=== PATIENT | female | born 1945 | race Caucasian/White ===

== ENCOUNTER → 2018-02-25 | Outpatient (CLI) | payer MEDICARE | END | disposition home or self-care (01) | LOC: US 09:53 | DX: I65.22 Occlusion and stenosis of left carotid artery (principal) | CPT/HCPCS: 93880 ==

== ENCOUNTER → 2020-06-28 | Outpatient (CLI) | payer MEDICARE ==
[2019-10-02 11:55] VITALS: BP 134/62
[~2020-06-28] MED LIST: ASPI325T70 PO; CLONAZEPAM1 MG PO; FAMO20TA5 PO; ISOS30TA4 PO; LISI1TAB23 PO; NITR0.4T24 SL; SIMV10TA15 PO
--- NOTE | 2020-06-28 16:12 | RAD ---
EXAM: CT Chest without IV contrast INDICATION: Reason: PULMONARY NODULE / Spl. Instructions: / History: TECHNIQUE: Multi-detector row CT images were acquired from the thoracic inlet through the upper abdomen without the use of IV contrast. Sagittal and coronal images were acquired from the transaxial data. All CT scans performed at this facility utilize dose optimization techniques as appropriate to the exam, including the following: Automated exposure control and adjustment of the mA and/or KV according to patient size (this includes techniques or standardized protocols for targeted exams where dose is indication/reason for exam). COMPARISON: Chest CT without IV contrast of September 30, 2019 FINDINGS: The absence of IV contrast limits evaluation of soft tissue pathology. CARDIOVASCULAR: Extensive arterial calcifications without aneurysmal dilation. There are calcifications at the origin of the great vessels, including the left subclavian artery and left common carotid artery. Evaluation for flow-limiting stenosis is limited in the absence of administered IV contrast. The heart is normal in size. No pericardial effusion. Multivessel coronary calcifications are present. MEDIASTINUM & FRANSISCO: No adenopathy or masses. LUNGS: Centrilobular emphysema. Posterior peripheral right upper lobe groundglass pulmonary nodule measuring approximately 9 mm shows interval increase in density centrally with solid-appearing central component measuring 5 mm (image 27 of axial series 2). The nodule appears to have irregular margins, possible early spiculation. 7 mm groundglass opacity in the peripheral left upper lobe (image 14 of axial series 2) is present unchanged. PLEURAL SPACE: No pleural effusions or pneumothorax. OSSEOUS & SOFT TISSUE: Unremarkable ABDOMEN: The visualized portions of the upper abdomen are unremarkable. IMPRESSION: 1. Emphysema with slightly increasing groundglass opacity in the peripheral right upper lobe, with a 5 mm central soft tissue component, and a stable 7 mm groundglass opacity in the left upper lobe. Recommend CT in 12 months.. Electronically signed by: Leidy Godoy MD (06/28/2020 4:09 PM) [id number]
== END | disposition home or self-care (01) ==
LOC: CT 10:25
PROVIDERS: ATTEND Internal Medicine
DX: J43.9 Emphysema, unspecified (principal); R91.1 Solitary pulmonary nodule; I25.10 Atherosclerotic heart disease of native coronary artery without angina pectoris
CPT/HCPCS: 71250

== ENCOUNTER 2020-09-10 15:25 | Emergency (ER) | payer MEDICARE ==
[~2020-09-10] VITALS: Ht 170.2 cm; Wt 71.8 kg
[2020-09-10 15:50] VITALS: BP 126/61
[2020-09-10 16:15] LABS: BASO % 0 % (0-3); EOS % 0 % (0-3); HEMATOCRIT 37.4 % (36.0-47.0); HEMOGLOBIN 12.8 g/dL (12.0-15.5); LYMPH % 27 % (24-48); MEAN CORPUSCULAR HEMOGLOBIN 30 pg (25-35); MEAN CORPUSCULAR HGB CONC 34 g/dL (31-37); MEAN CORPUSCULAR VOLUME 89 fL (79-100); MONO # 0.4 x10^3/uL (0.0-1.1); MONO % 10 % (0-9); NEUT # 2.3 x10^3/uL (1.8-7.7); NEUT % 63 % (31-73); PLATELET COUNT 144 x10^3/uL (140-400); RED BLOOD COUNT 4.21 x10^6/uL (3.50-5.40); RED CELL DISTRIBUTION WIDTH 13.8 % (11.5-14.5); WHITE BLOOD COUNT 3.7 x10^3/uL (4.0-11.0)
[2020-09-10] MEDS ORDERED: IV NORMAL SALINE 1000ML BAG 1,000 ML IV ONE (16:15)
[2020-09-10 16:29] LABS: CREATININE 1.5 mg/dL (0.6-1.0); GFR 33.8; POTASSIUM 3.3 mmol/L (3.5-5.1)
[2020-09-10 16:35] LABS: ALBUMIN 3.7 g/dL (3.4-5.0); ALBUMIN/GLOBULIN RATIO 0.9 (1.0-1.7); MAGNESIUM 1.9 mg/dL (1.8-2.4); TOTAL BILIRUBIN 0.7 mg/dL (0.2-1.0); TOTAL PROTEIN 7.8 g/dL (6.4-8.2)
--- NOTE | 2020-09-10 16:37 | PHYS DOC ---
Past Medical History Past Medical History: Anxiety, CVA, GERD, Hypertension, Stroke (XIN MORENO APRN) Past Surgical History: Tonsillectomy, Tubal ligation (XIN MORENO APRN) Smoking Status: Never Smoker Alcohol Use: None Drug Use: None (XIN MORENO APRN) General Adult EDM: Chief Complaint: WEAKNESS/GENERALIZED HPI: HPI: Patient is a 75 year old female with history of CVA, anxiety, hypertension, who presents to the ED today complaining of generalized weakness, symptoms began 4 days ago. Also complaining of nausea, vomiting and diarrhea for 4 days. She states she was seen at urgent care yesterday and was given Zofran. She states she was tested for COVID-19 and does not have results yet. Denies any chest pain or shortness of breath. Denies any fever, coughing or congestion. (XIN MORENO APRN) Review of Systems: Review of Systems: Constitutional: Denies fever or chills. [] Eyes: Denies change in visual acuity. [] HENT: Denies nasal congestion or sore throat. [] Respiratory: Denies cough or shortness of breath. [] Cardiovascular: Denies chest pain or edema. [] GI: Reports nausea, vomiting, diarrhea denies abdominal pain, bloody stools : Denies dysuria. [] Musculoskeletal: Denies back pain or joint pain. [] Integument: Denies rash. [] Neurologic: Reports generalized weakness. Denies headache, focal weakness or sensory changes. [] Psychiatric: Denies depression or anxiety. [] (XIN MORENO APRN) Heart Score: Risk Factors: Risk Factors: DM, Current or recent (<one month) smoker, HTN, HLP, family history of CAD, obesity. Risk Scores: Score 0 - 3: 2.5% MACE over next 6 weeks - Discharge Home Score 4 - 6: 20.3% MACE over next 6 weeks - Admit for Clinical Observation Score 7 - 10: 72.7% MACE over next 6 weeks - Early Invasive Strategies (XIN MORENO APRN) Current Medications: Current Medications Medications (Trade) Dose Ordered Sig/Yuni Start Time Stop Time Status Last Admin Dose Admin Sodium Chloride 1,000 ml @ 1,000 mls/hr 1X ONCE 09/10/20 16:15 09/10/20 17:14 09/10/20 16:14 1,000 MLS/HR (XIN MORENO [employer] MANAGER) Allergies: Allergies: Allergies Coded Allergies Type Severity Reaction Last Updated Verified No Known Drug Allergies 06/28/15 No (XIN MORENO SID) Physical Exam: PE: Constitutional: Well developed, well nourished, no acute distress, non-toxic appearance. [] HENT: Normocephalic, atraumatic, bilateral external ears normal, oropharynx moist, no oral exudates, nose normal. [] Eyes: PERRLA, EOMI, conjunctiva normal, no discharge. [] Neck: Normal range of motion, no tenderness, supple, no stridor. [] Cardiovascular:Heart rate regular rhythm, no murmur [] Lungs & Thorax: Bilateral breath sounds clear to auscultation [] Abdomen: Bowel sounds normal, soft, no tenderness, no masses, no pulsatile masses. [] Skin: Warm, dry, no erythema, no rash. [] Back: No tenderness, no CVA tenderness. [] Extremities: No tenderness, no cyanosis, no clubbing, ROM intact, no edema. [] Neurologic: Alert and oriented X 3, normal motor function, normal sensory function, no focal deficits noted. Cranial nerves II through XII intact Psychologic: Affect normal, judgement normal, mood normal. [] (XIN MORENO [employer] MANAGER) Current Patient Data: Labs: Laboratory Tests Test 09/10/20 15:55 White Blood Count 3.7 x10^3/uL (4.0-11.0) L Red Blood Count 4.21 x10^6/uL (3.50-5.40) Hemoglobin 12.8 g/dL (12.0-15.5) Hematocrit 37.4 % (36.0-47.0) Mean Corpuscular Volume 89 fL (79-100) Mean Corpuscular Hemoglobin 30 pg (25-35) Mean Corpuscular Hemoglobin Concent 34 g/dL (31-37) Red Cell Distribution Width 13.8 % (11.5-14.5) Platelet Count 144 x10^3/uL (140-400) Neutrophils (%) (Auto) 63 % (31-73) Lymphocytes (%) (Auto) 27 % (24-48) Monocytes (%) (Auto) 10 % (0-9) H Eosinophils (%) (Auto) 0 % (0-3) Basophils (%) (Auto) 0 % (0-3) Neutrophils # (Auto) 2.3 x10^3/uL (1.8-7.7) Lymphocytes # (Auto) 1.0 x10^3/uL (1.0-4.8) Monocytes # (Auto) 0.4 x10^3/uL (0.0-1.1) Eosinophils # (Auto) 0.0 x10^3/uL (0.0-0.7) Basophils # (Auto) 0.0 x10^3/uL (0.0-0.2) Sodium Level 130 mmol/L (136-145) L Potassium Level 3.3 mmol/L (3.5-5.1) L Chloride Level 95 mmol/L (98-107) L Carbon Dioxide Level 23 mmol/L (21-32) Anion Gap 12 (6-14) Blood Urea Nitrogen 40 mg/dL (7-20) H Creatinine 1.5 mg/dL (0.6-1.0) H Estimated GFR (Cockcroft-Gault) 33.8 BUN/Creatinine Ratio 27 (6-20) H Glucose Level 86 mg/dL (70-99) Calcium Level 9.0 mg/dL (8.5-10.1) Magnesium Level Pending Total Bilirubin Pending Aspartate Amino Transferase (AST) Pending Alanine Aminotransferase (ALT) Pending Alkaline Phosphatase Pending Total Protein Pending Albumin Pending Albumin/Globulin Ratio Pending Laboratory Tests 09/10/20 15:55 Laboratory Tests 09/10/20 15:55 Vital Signs: Vital Signs Date Time Temp Pulse Resp B/P (MAP) Pulse Ox O2 Delivery O2 Flow Rate FiO2 09/10/20 15:50 98.9 64 18 126/61 (82) 93 Room Air 98.9 (XIN MORENO APRN) EKG: EKG: [][id number] Puente sinus rhythm with T wave inversions on V4, V2, V5, V6 Ekg compared with 09/30/19 EKg and noted to have some similarities with slightly more T wave inversions on todays EKG. (XIN MORENO APRN) Radiology/Procedures: Radiology/Procedures: []PROCEDURE: CT HEAD WO CONTRAST Exam: CT head INDICATION: Weakness TECHNIQUE: Sequential axial images through the head were obtained without the administration of IV contrast. Comparisons: 09/30/2019 FINDINGS: No focal parenchymal lesion or hemorrhage is identified. There is no midline shift or sulcal effacement. Mild patchy hypodensity in the periventricular white matter particularly in the left frontal lobe, similar prior study. No acute vascular territory infarction is identified. Leal-white distinction is preserved. The ventricular system is within normal limits without compression hydrocephalus. The basal cisterns are well maintained. The visualized portions of the paranasal sinuses and mastoid air cells are well- pneumatized. No acute fractures. IMPRESSION: No acute intracranial abnormality. Exposure: One or more of the following in the visualized dose reduction techniques were utilized for this examination: 1. Automated exposure control 2. Adjustment of the MA and/or KV according to patient size Use of iterative of reconstructive technique Electronically signed by: Faye Cintron MD (09/10/2020 4:45 PM) [facility] DICTATED and SIGNED BY: FAYE CINTRON MD DATE: 09/10/20 [id number] PROCEDURE: PORTABLE CHEST 1V Exam: Chest one view INDICATION: Weakness TECHNIQUE: Frontal view of the chest Comparisons: None FINDINGS: The cardiomediastinal silhouette and pulmonary vessels are within normal limits. Strandy opacities at the left lung base. No pleural effusion. IMPRESSION: Left basilar atelectasis. Electronically signed by: Faye Cintron MD (09/10/2020 4:38 PM) [facility] DICTATED and SIGNED BY: FAYE CINTRON MD DATE: 09/10/20 [id number] (XIN MORENO APRN) Course & Med Decision Making: Course & Med Decision Making Pertinent Labs and Imaging studies reviewed. (See chart for details) This is a 75-year-old female patient presenting to the ED today complaining of generalized weakness, nausea, vomiting, diarrhea, symptoms of 4 days. Was seen at urgent care yesterday and started on Zofran. She states it did not relieve her symptoms. She was also tested for COVID-[address] of the head is negative, chest x-ray is negative for any acute findings, noted for atelectasis. CBC with WBC of 3.7, this is lower than patient's baseline. CMP with potassium of 3.3, patient was given oral potassium replacement, creatinine 1.5, BUN 40, this is around patient's baseline, lactic 2 .0, pro calcitonin 0.12. Urine analysis was positive for UTI. Patient was given IV fluids and Rocephin in the ED. Discharged on cephalexin. Instructed to push fluids and follow-up with the primary care doctor in the course of next week. She is currently waiting for COVID-19 results from urgent care. Encouraged to quarantine herself and maintain good hygiene. (XIN MORENO APRN) Dragon Disclaimer: Dragon Disclaimer: This electronic medical record was generated, in whole or in part, using a voice recognition dictation system. (XIN MORENO APRN) NIHSS Stroke Scale NIH Stroke Scale: NIH Stroke Scale Response (Comments) Value Level of Consciousness: 0 Alert/Responsive 0 LOC Questions: 0 Answers both correctly 0 LOC Commands: 0 Performs both tasks 0 Best Gaze: 0 Normal 0 Visual: 0 No visual loss 0 Facial Palsy: 0 Normal, symmetrical 0 Motor - Left Arm 0 No drift 0 Motor - Right Arm 0 No drift 0 Motor - Left Leg 0 No drift 0 Motor: Right Leg 0 No drift 0 Limb Ataxia: 0 Absent 0 Sensory: 0 No loss 0 Best Language: 0 Normal 0 Dysathria: 0 Normal 0 Extinction and Inattention: 0 Normal 0 Total 0 Departure Departure Impression: Primary Impression: Urinary tract infection Qualified Codes: N39.0 - Urinary tract infection, site not specified Additional Impressions: Weakness Person under investigation for COVID-19 Renal insufficiency Disposition: 01 DC HOME SELF CARE/HOMELESS Condition: STABLE Referrals: DESIREE GARCIA MD (PCP) follow up next week Patient Instructions: Urinary Tract Infection, Weakness Additional Instructions: You were evaluated in the emergency room. Your CAT scan of the head is negative for any acute findings, your chest x-ray is negative for any acute findings. Your urine was positive for urinary tract infection. We started you on antibiotics, take them as prescribed until completed. You were tested for COVID-19 at urgent care. Quarantine yourself until you get results. Maintain good antigen, push fluids. Scripts Metoclopramide Hcl (REGLAN) 10 Mg Tablet 1 TAB PO TID, #12 TAB 0 Refills before food and bedtime Prov: XIN MORENO APRN 09/10/20 Cephalexin (CEPHALEXIN) 500 Mg Tablet 1 TAB PO BID, #14 TAB Prov: XIN MORENO APRN 09/10/20 Attending Signature Attending Signature I have reviewed the PA/MACHINE III COREMAKER's note and plan of care. I was available for consultation as needed during the patient's visit in the emergency department. I agree with the clinical impression, plan, and disposition. (TEE PUENTE DO) XIN MORENO APRN Sep 10, 2020 16:37 TEE PUENTE DO Sep 11, 2020 10:34
--- NOTE | 2020-09-10 16:40 | RAD ---
Exam: Chest one view INDICATION: Weakness TECHNIQUE: Frontal view of the chest Comparisons: None FINDINGS: The cardiomediastinal silhouette and pulmonary vessels are within normal limits. Strandy opacities at the left lung base. No pleural effusion. IMPRESSION: Left basilar atelectasis. Electronically signed by: Faye Meneses MD (09/10/2020 4:38 PM) TYSHAWN
[2020-09-10 16:43] LABS: CREATINE KINASE 66 U/L (26-192)
--- NOTE | 2020-09-10 16:48 | RAD ---
Exam: CT head INDICATION: Weakness TECHNIQUE: Sequential axial images through the head were obtained without the administration of IV co ntrast. Comparisons: 09/30/2019 FINDINGS: No focal parenchymal lesion or hemorrhage is identified. There is no midline shift or sulcal effaceme nt. Mild patchy hypodensity in the periventricular white matter particularly in the left frontal lobe, si milar prior study. No acute vascular territory infarction is identified. Leal-white distinction is pr eserved. The ventricular system is within normal limits without compression hydrocephalus. The basal cisterns are well maintained. The visualized portions of the paranasal sinuses and mastoid air cells are well-pneumatized. No acute fractures. IMPRESSION: No acute intracranial abnormality. Exposure: One or more of the following in the visualized dose reduction techniques were utilized for this examination: 1. Automated exposure control 2. Adjustment of the MA and/or KV according to patient size Use of iterative of reconstructive technique Electronically signed by: Faye Meneses MD (09/10/2020 4:45 PM) [facility]US[facility]OL[facility]
[2020-09-10 17:02] LABS: BILIRUBIN,URINE NEGATIVE (NEG); CLARITY,URINE CLEAR; COLOR,URINE YELLOW; NITRITE,URINE POSITIVE (NEG); PH,URINE 5.5 (<5.0-8.0); PROTEIN,URINE NEGATIVE (NEG-TRACE)
--- NOTE | 2020-09-10 17:09 | EKG ---
[facility] [address] [place] [address] Test Date: 2020-09-10 Test Time: 15:57:39 Pat Name: SHINE SCANLON Department: Room: Gender: F [employer] Portal Developer: : 1945 Requested By: XIN MORENO Order Number: [id number] Reading MD: Measurements Intervals Marydel Rate: 66 P: [place]: QRS: 131 QRSD: 90 T: 0 QT: 456 QTc: 480 Interpretive Statements SINUS RHYTHM ABNORMAL RIGHT AXIS DEVIATION CONSIDER RIGHT VENTRICULAR HYPERTROPHY QRS(T) CONTOUR ABNORMALITY CONSISTENT WITH HIGH LATERAL INFARCT AGE UNDETERMINED ST & T ABNORMALITY, CONSIDER ANTERIOR ISCHEMIA OR LEFT VENTRICULAR STRAIN ABNORMAL ECG RI6.02 No previous ECG available for comparison
[2020-09-10 17:10] LABS: BARBITURATES NEG (NEG); BENZODIAZEPINES NEG (NEG); CANNABINOIDS NEG (NEG); COCAINE NEG (NEG); METHADONE NEG (NEG); OPIATES NEG (NEG); PHENCYCLIDINE NEG (NEG)
[2020-09-10 17:11] LABS: BACTERIA,URINE MANY /HPF (0-FEW); RBC,URINE 0 /HPF (0-2); WBC,URINE >40 /HPF (0-4)
[2020-09-10 17:12] LABS: AMPHETAMINE/METHAMPHETAMINE NEG (NEG)
[2020-09-10] MEDS ORDERED: cefTRIAXone IV Push 1 GM VIAL. IVP ONE (17:30)
[2020-09-10] MEDS ORDERED: POTASSIUM CHLORIDE 20 MEQ TABLET.ER. PO ONE (17:30)
[2020-09-10] MEDS ORDERED: CEPH500T PO (18:40)
[2020-09-10] MEDS ORDERED: METO10TA81 PO (18:40)
[2020-09-15] MEDS ORDERED: ATOR20TA PO (09:58)
[2020-09-15] MEDS ORDERED: ONDA4TAB7 PO (09:58)
[2020-09-15] MEDS ORDERED: CHOL2400 IM (09:58)
[2020-09-15] MEDS ORDERED: CLOP75TA PO (09:58)
[2020-09-15] MEDS ORDERED: FAMO20TA5 PO (09:58)
[2020-09-15] MEDS ORDERED: LISI1TAB23 PO (09:58)
[2020-09-18] MEDS ORDERED: DOXY-96 PO (11:43)
== END 2020-09-10 19:05 | disposition home or self-care (01) ==
LOC: ER 15:25
DX: N39.0 Urinary tract infection, site not specified (principal); R53.1 Weakness; R11.2 Nausea with vomiting, unspecified; R19.7 Diarrhea, unspecified; N28.9 Disorder of kidney and ureter, unspecified; F41.9 Anxiety disorder, unspecified; K21.9 Gastro-esophageal reflux disease without esophagitis; I10 Essential (primary) hypertension; I25.2 Old myocardial infarction; Z90.89 Acquired absence of other organs; Z98.51 Tubal ligation status; Z86.73 Personal history of transient ischemic attack (TIA), and cerebral infarction without residual deficits; Z79.899 Other long term (current) drug therapy
CPT/HCPCS: 36415; 70450; 71045; 80053; 80307; 81001; 82553; 83605; 83735; 83880; 84145; 84443; 84484; 85025; 87040; 87086; 93005; 96361; 96374; 99285; J0696; J7030

== ENCOUNTER → 2020-10-17 | Outpatient (CLI) | payer MEDICARE ==
[2020-09-18 11:00] VITALS: BP 87/44
[~2020-10-17] MED LIST changes: +ATOR20TA PO; +CEPH500T PO; +CHOL2400 IM; +CLOP75TA PO; +CONTRAST GIVEN. MC PRN; +DOXY-96 PO; +IOHEXOL 350 MG/ML 100 ML VIAL. IV ONE; -ISOS30TA4 PO; +ISOS30TA68 PO; +METO10TA81 PO; +ONDA4TAB7 PO
--- NOTE | 2020-10-17 10:28 | RAD ---
EXAM: CT angiography of the chest with intravenous contrast. HISTORY: Pneumonia. COPD. Lung nodule. TECHNIQUE: Computed tomographic images of the chest were obtained following the administration of int ravenous contrast according to angiography protocol. Multiplanar reformatting was performed and three dimensional maximum intensity projection images were obtained. *One or more of the following individualized dose reduction techniques were utilized for this examina tion: 1. Automated exposure control. 2. Adjustment of the mA and/or kV according to patient size. 3. Use of iterative reconstruction technique. COMPARISON: 06/28/2020 and 09/30/2019. FINDINGS: There is no evidence of pulmonary embolism. There is mild cardiomegaly. There is calcified atherosclerotic plaque involving the coronary arteries, aorta and aortic arch great vessels. There is occlusion of the left common carotid artery from its origin through its visualized proximal and mid aspects. There is partially calcified atherosclerotic plaque resulting in 50-69 percent stenosis invo lving the proximal left subclavian artery. There are enlarged mediastinal and hilar lymph nodes. For reference purposes, there is a right hilar lymph node measuring 2.1 cm. There is a heterogeneous thyr oid containing calcifications. No dominant nodule is seen. There is pulmonary emphysema with biapical predominant pleural parenchymal scarring. There is no pneu mothorax or pleural effusion. There is bilateral multifocal infiltrate with partial consolidation. Th ere are superimposed groundglass opacities due to infiltrate throughout both lungs. There is left kimberly al atrophy. There are bilateral renal cysts, partially included on the dytcd-cl-imnq. There is degene rative change throughout the spine. There is no acute osseous finding. IMPRESSION: 1. No evidence of pulmonary embolism. 2. Multifocal pneumonia with areas of partial consolidation. Follow-up to confirm resolution and excl ude a persistent underlying lesion. 3. Scattered groundglass opacities throughout both lungs likely due to aforementioned infiltrate. The previously described groundglass nodules within the bilateral upper lobes are unchanged. 4. Emphysema. 5. Mediastinal and hilar lymphadenopathy, likely reactive given the aforementioned findings. Attentio n the time of follow-up is recommended. 6. Left common carotid artery occlusion. This is described on the Doppler sonogram performed 10/01/2019 . 7. Left renal atrophy and bilateral renal cysts, partially included on the [id number]-[id number]. Electronically signed by: Claire Ye MD (10/17/2020 10:25 AM) [id number]
== END ==
LOC: CT 08:22
PROVIDERS: ATTEND Internal Medicine
DX: J44.9 Chronic obstructive pulmonary disease, unspecified (principal); R91.1 Solitary pulmonary nodule; J18.9 Pneumonia, unspecified organism; N28.1 Cyst of kidney, acquired
CPT/HCPCS: 71275; Q9967

== ENCOUNTER → 2021-09-12 | Outpatient (CLI) | payer MEDICARE ==
[2020-09-18 11:00] VITALS: BP 87/44
[~2021-09-12] MED LIST changes: -CONTRAST GIVEN. MC PRN; -IOHEXOL 350 MG/ML 100 ML VIAL. IV ONE; -LISI1TAB23 PO; +LISI1TAB35 PO
--- NOTE | 2021-09-12 15:19 | KCIC ---
MR LUMBAR SPINE WO [id number] History: Reason: NOCTURNAL ENURESIS, LOW BACK PAIN / Spl. Instructions: / History: Chronic LBP and B LE cramping. Technique: Multiplanar, multi sequential MR imaging was performed of the lumbar spine. Comparison: None Findings: Grade 1 anterolisthesis L3 on L4 and L4 on L5. Normal vertebral body height. No acute fracture. Mild degenerative endplate edema T12-L1 and L5-S1. No acute fracture. Bilateral renal cysts. Conus terminates at the normal location. No evidence of nerve root clumping. Sacral Tarlov cysts. T12-L1: Small disc bulge. Mild facet arthropathy. No canal narrowing. Moderate right and mild left ne uroforaminal narrowing. L1-L2: Broad-based disc bulge. Mild facet arthropathy. No canal narrowing. Mild bilateral neuroforam inal narrowing. L2-L3: Broad-based disc bulge. Mild facet arthropathy. No canal narrowing. Moderate bilateral neurof oraminal narrowing. L3-L4: Anterolisthesis. Disc uncovering. Small disc extrusion. Advanced facet arthropathy. Mild suba rticular recess narrowing. No canal narrowing. Ligamentum flavum thickening. Moderate bilateral neuro foraminal narrowing. L4-L5: Anterolisthesis. Disc uncovering. Small disc extrusion. Advanced facet arthropathy. No canal narrowing. Mild left neuroforaminal narrowing. L5-S1: Small right subarticular disc extrusion and potential free fragment compressing and displacin g the descending right S1 nerve root (series 5 image 45). No canal narrowing. Mild facet arthropathy. Moderate bilateral neuroforaminal narrowing. Impression: 1. Moderate lumbar spondylosis. 2. Right L5-S1 disc extrusion with potential free fragment contributing to right subarticular recess narrowing with abutment and displacement of the descending right S1 nerve root. Correlate for radicu lopathy. 3. Multilevel neuroforaminal narrowing most prominent L2-L3, L3-L4 and L5-S1. Electronically signed by: López Stevens DO (09/12/2021 3:17 PM) [id number]
== END ==
LOC: KCIC MRI 10:39
PROVIDERS: ATTEND Internal Medicine
DX: M47.816 Spondylosis without myelopathy or radiculopathy, lumbar region (principal); M48.8X7 Other specified spondylopathies, lumbosacral region; M48.07 Spinal stenosis, lumbosacral region; R60.0 Localized edema; N39.44 Nocturnal enuresis; M51.26 Other intervertebral disc displacement, lumbar region
CPT/HCPCS: 72148

== ENCOUNTER → 2021-11-15 | Outpatient (CLI) | payer MEDICARE ==
[2021-10-17 11:00] VITALS: BP 122/57
[~2021-11-15] MED LIST changes: +APIX5TAB PO; +NITR100C62 PO
--- NOTE | 2021-11-16 13:02 | CARD ---
MR#: [id number] Date of Study: 11/15/2021 Ordering Physician: WINDY FARIAS, Referring Physician: WINDY FARIAS, Tech: Cheryl Denia, [facility] APPROVED REPORT EXAM: Two-dimensional and M-mode echocardiogram with Doppler and color Doppler. Other Information Quality : AverageHR: 90bpm Technically limited study due to body habitus. INDICATION Atrial Fibrillation RISK FACTORS Hypertension Hyperlipidemia 2D DIMENSIONS RVDd2.8 (2.9-3.5cm)Left Atrium(2D)3.9 (1.6-4.0cm) IVSd1.2 (0.7-1.1cm)Aortic Root(2D)2.7 (2.0-3.7cm) LVDd4.8 (3.9-5.9cm)LVOT Diameter2.1 (1.8-2.4cm) PWd1.0 (0.7-1.1cm)LVDs2.9 (2.5-4.0cm) FS (%) 40.5 %SV76.9 ml LVEF(%)71.2 (>50%) Aortic Valve AoV Peak Aries.126.5cm/sAoV VTI21.3cm AO Peak GR.6.4mmHgLVOT Peak Aries.94.7cm/s LVOT VTI 18.66cmAO Mean GR.3mmHg CHAVO (VMAX)1.67ha8EUO (VTI)2.98cm2 AI P 1/2 [id number] Mitral Valve MV E Mean Gr.1mmHg Tricuspid Valve TR P. [id number]/sRAP [id number] TR Peak Gr.[id number] LEFT VENTRICLE The left ventricle is normal size. There is mild concentric left ventricular hypertrophy. The left ve ntricular systolic function is normal and the ejection fraction is within normal range. The Ejection Fraction is 50-55%. There is normal LV segmental wall motion. Transmitral Doppler flow pattern is Gra de II-pseudonormal filling dynamics. RIGHT VENTRICLE The right ventricle is normal size. There is normal right ventricular wall thickness. The right ventr icular systolic function is normal. ATRIA The left atrium size is normal. The right atrium size is normal. The interatrial septum is intact wit h no evidence for an atrial septal defect or patent foramen ovale as noted on 2-D or Doppler imaging. AORTIC VALVE The aortic valve is grossly normal in structure and function. Doppler and Color Flow revealed trace a ortic regurgitation. There is no significant aortic valvular stenosis. Calculated aortic valve area i s 2.44 cm2 with maximum pressure gradient of 8 mmHg and mean pressure gradient of 5 mmHg. MITRAL VALVE The mitral valve is normal in structure and function. There is no evidence of mitral valve prolapse. There is no mitral valve stenosis. Doppler and Color-flow revealed trace mitral regurgitation. TRICUSPID VALVE The tricuspid valve is normal in structure and function. Doppler and Color Flow revealed trace to mil d tricuspid regurgitation with an estimated PAP of 33 mmHg. There is no tricuspid valve stenosis. PULMONIC VALVE The pulmonic valve is not well visualized. Doppler and Color Flow revealed trace pulmonic valvular re gurgitation. There is no pulmonic valvular stenosis. GREAT VESSELS The aortic root is normal in size. The IVC is normal in size and collapses >50% with inspiration. PERICARDIAL EFFUSION There is no evidence of significant pericardial effusion. Critical Notification Critical Value: No <Conclusion> The left ventricular systolic function is normal and the ejection fraction is within normal range. Th e Ejection Fraction is 50-55%. There is normal LV segmental wall motion. Signed by : Mitch Houser, Electronically Approved : 11/16/2021 13:02:05
== END ==
LOC: ECHO 10:53
PROVIDERS: ATTEND Internal Medicine Cardiovascular Disease
DX: I07.1 Rheumatic tricuspid insufficiency (principal); I48.91 Unspecified atrial fibrillation
CPT/HCPCS: 93306; C8929

== ENCOUNTER → 2021-11-27 | Outpatient (CLI) | payer MEDICARE ==
[2021-10-17 11:00] VITALS: BP 122/57
--- NOTE | 2021-11-27 16:12 | RAD ---
MR#: [id number] Date of Study: 11/27/2021 Ordering Physician: WINDY FARIAS, Referring Physician: WINDY FARIAS, Tech: Norma Sandoval, TAE, RVT, RTR APPROVED REPORT Patient Location: OUT-PATIENT Laterality:Bilateral Indications Bilateral Carotid Stenosis Doppler Spectral Velocity Analysis Right Left pCCA 99/14 cm/spCCA mCCA 91/14 cm/smCCA dCCA 159/41 cm/sdCCA Bulb 110/32 cm/sBulb ECA 154/ cm/sECA pICA 133/32 cm/spICA Cecy 143/32 cm/smICA dICA 194/52 cm/sdICA Vert. 45/ cm/sVert. 45/ cm/s ICA/CCA 1.22ICA/CCA Findings Grayscale images the bilateral carotid vessels demonstrates moderate to severe diffuse atheroscleroti c plaque. On the right side there is likely moderate 50 to 69% stenosis involving the distal ICA although the i mages are limited.. There are grossly normal ICA to CCA ratios. The left carotid system appears to be occluded. Bilateral vertebral velocities are within normal limits and antegrade. Critical Notification Critical Value: No <Conclusion> 1. Left-sided carotid occlusive disease 2. Probable at least moderate right-sided ICA disease. Consider CT angiogram of the neck for furthe r evaluation and correlate with any clinical symptoms. Signed by : Mitch Houser, Electronically Approved : 11/27/2021 16:11:55
== END ==
LOC: US 10:36
PROVIDERS: ATTEND Internal Medicine Cardiovascular Disease
DX: I65.23 Occlusion and stenosis of bilateral carotid arteries (principal)
CPT/HCPCS: 93880